=== PATIENT | female | born 1985 | race American Indian/Alaskan Native ===

== ENCOUNTER 2018-10-12 11:26 | Emergency (ER) | payer BC ==
[2018-10-12 11:36] VITALS: BP 125/81
--- NOTE | 2018-10-12 11:38 | Emergency Department Report ---
Blank Doc - Documentation Documentation: 33 y o female at approx [address] Gauthier pre sents with Headache with continued nausea no nausea meds by obgyn Plan: basic labs IVF? home meds: antiemetic [facility] eval
[2018-10-12 11:58] LABS: Basophils % (Auto) 0.5 % (0.0-1.8); Eosinophils % (Auto) 0.3 % (0.0-4.3); Hematocrit 37.5 % (30.3-42.9); Hemoglobin 12.7 gm/dl (10.1-14.3); Lymphocytes % (Auto) 21.9 % (13.4-35.0); Mean Corpuscular HGB Conc 34 % (30-34); Mean Corpuscular Volume 90 fl (79-97); Monocytes # (Auto) 0.8 K/mm3 (0.0-0.8); Monocytes % (Auto) 8.3 % (0.0-7.3); Platelet Count 249 K/mm3 (140-440); Red Blood Count 4.17 M/mm3 (3.65-5.03); Red Cell Distribution Width 13.3 % (13.2-15.2)
[2018-10-12 12:09] LABS: BUN/Creatinine Ratio 12; Blood Urea Nitrogen 6 mg/dL (7-17); Calcium 9.3 mg/dL (8.4-10.2); Hemolysis Index 10
[2018-10-12] MEDS ORDERED: NACL 0.9% 1000 ML 1,000 ML IV ONE (12:25)
[2018-10-12] MEDS ORDERED: ZOFRAN IV ONE (12:26)
--- NOTE | 2018-10-12 12:31 | Emergency Department Report ---
ED General Adult HPI - General Chief complaint: Nausea/Vomiting/Diarrhea Stated complaint: NAUSEA/HEADACHE Time Seen by Provider: 10/12/18 11:34 Source: patient Mode of arrival: Ambulatory Limitations: No Limitations - History of Present Illness Initial comments: Mrs. Kraus is a healthy 33-year-old female who is currently 9 weeks . She is followed by Dr. Greenberg INTERVENTIONAL PAIN PHYSICIAN. 011. She denies any abdominal pain or chest pain pain. She denies vaginal bleeding. She has had mild headache with 2 weeks of nausea vomiting. She has been tolerating water. -: Gradual, week(s) (2) Location: head Quality: aching Consistency: constant Improves with: none Worsens with: none Associated Symptoms: nausea/vomiting - Related Data Previous Rx's Medication Instructions Recorded Last Taken Type Ondansetron [Zofran Odt] 4 mg PO Q8HR #10 tab.rapdis 10/12/18 Unknown Rx Promethazine [Phenergan] 25 mg PO Q6HR PRN #10 tab 10/12/18 Unknown Rx Allergies Allergy/AdvReac Type Severity Reaction Status Date / Time No Known Allergies Allergy Unverified 10/12/18 11:27 ED Review of Systems ROS: Stated complaint: NAUSEA/HEADACHE Other details as noted in HPI Comment: All other systems reviewed and negative Constitutional: denies: fever, malaise Gastrointestinal: nausea, vomiting. denies: abdominal pain Neurological: headache ED Past Medical Hx - Past Medical History Previous Medical History?: No - Surgical History Past Surgical History?: No - Social History Smoking Status: Never Smoker Substance Use Type: Alcohol - Medications Home Medications: Home Medications Medication Instructions Recorded Confirmed Last Taken Type Ondansetron [Zofran Odt] 4 mg PO Q8HR #10 tab.rapdis 10/12/18 Unknown Rx Promethazine [Phenergan] 25 mg PO Q6HR PRN #10 tab 10/12/18 Unknown Rx ED Physical Exam - General Limitations: No Limitations General appearance: alert, in no apparent distress - Head Head exam: Present: atraumatic, normocephalic - Eye Eye exam: Present: normal appearance - ENT ENT exam: Present: mucous membranes moist - Neck Neck exam: Present: normal inspection, full ROM - Respiratory Respiratory exam: Present: normal lung sounds bilaterally. Absent: respiratory distress, wheezes, rales, rhonchi - Cardiovascular Cardiovascular Exam: Present: regular rate, normal rhythm, normal heart sounds. Absent: systolic murmur, diastolic murmur, rubs, gallop - GI/Abdominal GI/Abdominal exam: Present: soft, normal bowel sounds. Absent: distended, tenderness, guarding, rebound - Extremities Exam Extremities exam: Present: normal inspection - Back Exam Back exam: Present: normal inspection - Neurological Exam Neurological exam: Present: alert, oriented X3 - Psychiatric Psychiatric exam: Present: normal affect, normal mood - Skin Skin exam: Present: warm, dry, intact, normal color. Absent: rash ED Course Vital Signs 10/12/18 11:34 Temperature 98.3 F Pulse Rate 84 Respiratory 16 Rate Blood Pressure 125/81 O2 Sat by Pulse 100 Oximetry ED Medical Decision Making - Lab Data Result diagrams: 10/12/18 11:44 10/12/18 11:44 Laboratory Results - last 24 hr 10/12/18 10/12/18 11:44 11:44 WBC 9.3 RBC 4.17 Hgb 12.7 Hct 37.5 MCV 90 MCH 30 MCHC 34 RDW 13.3 Plt Count 249 Lymph % (Auto) 21.9 [place] % (Auto) 8.3 H Eos % (Auto) 0.3 Baso % (Auto) 0.5 Lymph # 2.0 [place] # 0.8 Eos # 0.0 Baso # 0.0 Seg Neutrophils % 69.0 Seg Neutrophils # 6.4 Sodium 137 Potassium 4.3 Chloride 102.4 Carbon Dioxide 20 L Anion Gap 19 BUN 6 L Creatinine 0.5 L Estimated GFR > 60 BUN/Creatinine Ratio 12 Glucose 86 Calcium 9.3 - Medical Decision Making Mrs. Benavides presents with hyperemesis gravidarum headache related to dehydration. Reflected in basic medical panel with elevated anion gap And mild metabolic acidosis Given IV fluid and IV Zofran in the ED. Prescribed Zofran and promethazine. Critical care attestation.: If time is entered above; I have spent that time in minutes in the direct care of this critically ill patient, excluding procedure time. ED Disposition Clinical Impression: Hyperemesis gravidarum, Dehydration, Tension headache Disposition: TO HOME OR SELFCARE Is pt being admited?: No Does the pt Need Aspirin: No Condition: Stable Instructions: Hyperemesis Gravidarum (ED), Dehydration (ED) Prescriptions: Promethazine [Phenergan] 25 mg PO Q6HR PRN #10 tab PRN Reason: Nausea Ondansetron [Zofran Odt] 4 mg PO Q8HR #10 tab.rapdis Referrals: PEGGY GREENBERG MD [Staff Physician] - 3-5 Days
== END 2018-10-12 14:53 | disposition home or self-care (01) ==
LOC: ED 11:26
DX: O21.0 Mild hyperemesis gravidarum (principal); O99.281 Endocrine, nutritional and metabolic diseases complicating pregnancy, first trimester; O26.891 Other specified pregnancy related conditions, first trimester; G44.209 Tension-type headache, unspecified, not intractable; Z3A.09 9 weeks gestation of pregnancy
CPT/HCPCS: 36415; 80048; 84702; 85025; 96361; 96374; 99283; J2405; J7030

== ENCOUNTER 2019-01-19 02:30 | Outpatient (CLI) | payer BC ==
[2019-01-19 02:52] VITALS: BP 111/78
[2019-01-19] MEDS ORDERED: LACTATED RINGERS 1,000 ML IV ONE (03:07)
[2019-01-19] MEDS ORDERED: ZOFRAN IV PRN (03:07)
[2019-01-19 04:02] LABS: Bacteria,Urine 1+ /HPF (Negative); Bilirubin,Urine NEG (Negative); Blood,Urine NEG (Negative); Color,Urine Yellow (Yellow); Mucus,Urine 1+ /HPF; Protein,Urine <15 mg/dL mg/dL (Negative); Urobilinogen,Urine < 2.0 mg/dL (<2.0)
== END 2019-01-19 04:49 | disposition home or self-care (01) ==
LOC: TRG 02:30
PROVIDERS: ATTEND Obstetrics & Gynecology
DX: O26.892 Other specified pregnancy related conditions, second trimester (principal); M54.5 Low back pain; R10.32 Left lower quadrant pain; R10.2 Pelvic and perineal pain; Z3A.23 23 weeks gestation of pregnancy
CPT/HCPCS: 81001; 96365; 96366; J2405; J7120

== ENCOUNTER 2019-03-17 18:23 | Outpatient (CLI) | payer BC ==
[2019-03-17 18:44] VITALS: BP 106/58
[2019-03-17] MEDS ORDERED: LACTATED RINGERS 500 ML IV ONE (19:07)
[2019-03-17 21:26] LABS: Bilirubin,Urine NEG (Negative); Blood,Urine NEG (Negative); Color,Urine Straw (Yellow); Protein,Urine <15 mg/dL mg/dL (Negative); Urobilinogen,Urine < 2.0 mg/dL (<2.0); WBC,Urine < 1.0 /HPF (0.0-6.0)
== END 2019-03-17 22:32 | disposition home or self-care (01) ==
LOC: TRG 18:23
PROVIDERS: ATTEND Obstetrics & Gynecology
DX: O60.03 Preterm labor without delivery, third trimester (principal); Z3A.31 31 weeks gestation of pregnancy
CPT/HCPCS: 81001; J7120